=== PATIENT | male | born 1945 | race African-American/Black ===

== ENCOUNTER → 2016-11-07 | Outpatient (CLI) | payer OTHER | LOC: CIMAGING 08:44 | PROVIDERS: ATTEND Nurse Practitioner | DX: I71.4 Abdominal aortic aneurysm, without rupture (principal); I72.3 Aneurysm of iliac artery; E78.2 Mixed hyperlipidemia; I10 Essential (primary) hypertension ==

== ENCOUNTER → 2017-05-12 | Outpatient (CLI) | payer OTHER | LOC: CIMAGING 10:04 | PROVIDERS: ATTEND Nurse Practitioner | DX: M19.011 Primary osteoarthritis, right shoulder (principal); M47.892 Other spondylosis, cervical region | CPT/HCPCS: 72052-PO; 73030-PO ==

== ENCOUNTER → 2017-11-07 | Outpatient (CLI) | payer OTHER | LOC: SBRMNEURO 20:00 | PROVIDERS: ATTEND Internal Medicine Pulmonary Disease | DX: G47.33 Obstructive sleep apnea (adult) (pediatric) (principal); G47.61 Periodic limb movement disorder ==